=== PATIENT | female | born 1980 | race American Indian/Alaskan Native ===

== ENCOUNTER 2017-01-14 18:15 | Emergency (ER) | payer SELFPAY ==
--- NOTE | 2017-01-14 18:40 | Emergency Department Report ---
Entered by CARLY CANSECO, acting as scribe for SUJATHA PAINTING NP. Chief Complaint: Chest Pain Stated Complaint: CHEST PAIN/TIGHTNESS/RT ARM PAIN Time Seen by Provider: 01/14/17 18:34 - HPI History of Present Illness: 36 y/o female reports c/o chest pain that started 2 weeks ago and radiates to back and left arm. Pain is worsened with physical exertion. Sx include N/V, diaphoresis. no neuro or focal deficits NAD VSS Ambulatory - ROS Review of Systems: as noted in HPI - Exam Vital Signs: Vital Signs 01/14/17 18:25 Temperature 98.7 F Pulse Rate 71 Respiratory 20 Rate Blood Pressure 153/107 O2 Sat by Pulse 99 Oximetry Physical Exam: as noted in HPI MSE screening note: Focused history and physical exam performed. Due to findings the following was ordered: ED Disposition for MSE Condition: Stable This documentation as recorded by the scribe,CARLY CANSECO,accurately reflects the service I personally performed and the decisions made by ,SUJATHA PAINTING NP.
--- NOTE | 2017-01-14 18:40 | Emergency Department Report ---
Chief Complaint: Chest Pain Stated Complaint: CHEST PAIN/TIGHTNESS/RT ARM PAIN Time Seen by Provider: 01/14/17 18:30 - HPI History of Present Illness: chest tight no n/v/d denies hx but chart contrary w htn/cva allergy percocet no cig does not know fam hx no daily meds no cp at present - Exam Vital Signs: Vital Signs 01/14/17 18:25 Temperature 98.7 F Pulse Rate 71 Respiratory 20 Rate Blood Pressure 153/107 O2 Sat by Pulse 99 Oximetry MSE screening note: Focused history and physical exam performed. Due to findings the following was ordered: ED Disposition for MSE Condition: Stable
[2017-01-14 19:40] LABS: Basophils % (Auto) 0.4 % (0.0-1.8); Eosinophils % (Auto) 4.2 % (0.0-4.3); Hemoglobin 13.1 gm/dl (10.1-14.3); Mean Corpuscular HGB Conc 33 % (30-34); Mean Corpuscular Hemoglobin 27 pg (28-32); Mean Corpuscular Volume 83 fl (79-97); Platelet Count 235 K/mm3 (140-440); Red Blood Count 4.83 M/mm3 (3.65-5.03); Red Cell Distribution Width 14.1 % (13.2-15.2); White Blood Count 5.9 K/mm3 (4.5-11.0)
[2017-01-14 19:56] LABS: Anion Gap 18 mmol/L; BUN/Creatinine Ratio 17.14; Blood Urea Nitrogen 12 mg/dL (7-17); Calcium 9.2 mg/dL (8.4-10.2); Carbon Dioxide 24 mmol/L (22-30); Chloride 103.1 mmol/L (98-107); Glucose 123 mg/dL (65-100); Potassium 4.1 mmol/L (3.6-5.0); Sodium 141 mmol/L (137-145)
[2017-01-15] MEDS ORDERED: NORMODYNE IV ONE (02:24)
[2017-01-15] MEDS ORDERED: ZOFRAN IV ONE (03:10)
[2017-01-15] MEDS ORDERED: TORADOL IV ONE (03:10)
[2017-01-15] MEDS ORDERED: SUBLIMAZE IV ONE (03:21)
--- NOTE | 2017-01-15 05:50 | Emergency Department Report ---
HPI - General Chief Complaint: Chest Pain Time Seen by Provider: 01/15/17 02:25 - HPI HPI: The patient is a 36 yo female whom presents for evaluation of chest pain. The patient reports chest pain for the past 2 weeks, 6/10 in severity, dull but at times sharp in quality, radiating to the left arm and back, exacerbated with movement. She states that her symptoms began after she was exercising. She admits to a nonproductive cough for the same duration as well. The patient denies fever, neck pain, parasthesias, dyspnea, cough, hemoptysis, palpitations , dizziness, syncope, unilateral leg swelling, calf muscle pain. Patient also denies cocaine or other stimulant use, history of DVT or PE, recent immobilization, or history of cancer. ED Past Medical Hx - Past Medical History Hx Psychiatric Treatment: Yes (depression/anxiety) - Surgical History Hx Cholecystectomy: Yes Additional Surgical History: tubal ligation - Social History Smoking Status: Never Smoker Substance Use Type: None - Medications Home Medications: Home Medications Medication Instructions Recorded Confirmed Last Taken Type Azithromycin [Zithromax Z-TATIANA] 250 mg PO QDAY #6 tablet 01/15/17 Unknown Rx Benzonatate [Tessalon Perles] 100 mg PO Q8HR #14 capsule 01/15/17 Unknown Rx Cyclobenzaprine HCl [Flexeril 5 MG 5 mg PO Q8HR PRN #15 tab 01/15/17 Unknown Rx TAB] guaiFENesin [Mucinex] 600 mg PO Q6HR #20 tab.er.12h 01/15/17 Unknown Rx ED Review of Systems ROS: Stated complaint: CHEST PAIN/TIGHTNESS/RT ARM PAIN Other details as noted in HPI Constitutional: denies: fever ENT: denies: throat or neck pain Respiratory: reports cough denies: shortness of breath Cardiovascular: reports: chest pain Endocrine: denies unexplained weight loss or gain Gastrointestinal: denies: abdominal pain, nausea Genitourinary: denies: dysuria Musculoskeletal: denies: leg swelling Skin: denies: rash Neurological: denies: headache Hematological/Lymphatic: denies: easy bleeding or easy bruising Psych: denies sadness or hopelessness Physical Exam - Physical Exam Vital Signs: Vital Signs 01/14/17 01/15/17 01/15/17 18:25 00:23 02:43 Temperature 98.7 F 98.7 F Pulse Rate 71 68 69 Respiratory 20 14 Rate Blood Pressure 153/107 161/117 123/66 O2 Sat by Pulse 99 96 Oximetry 01/15/17 01/15/17 04:17 05:20 Temperature Pulse Rate Respiratory 20 20 Rate Blood Pressure O2 Sat by Pulse Oximetry Physical Exam: General: well-nourished, well-developed, no acute distress Head: Normocephalic, atraumatic Eyes: normal sclera ENT: Mucous membranes are pink and moist Neck: trachea midline, neck supple, No neck stiffness, no cervical adenopathy Respiratory: Breath sounds equal bilaterally, no wheezing, rales, or rhonchi Cardio: S1 and S2 present, no murmurs, rubs, gallops, capillary refill is brisk Abdomen: Normoactive bowel sounds, soft abdomen, no rigidity, no guarding or rebound tenderness Chest WALL/Back: No tenderness to palpation of the chest wall, chest pain elicited with internal rotation and adduction of the left arm at the shoulder joint, no CVA tenderness with percussion Musc: No pitting edema Skin: No rash Neuro: no facial drooping, normal speech Psych: Normal affect ED Course Vital Signs 01/14/17 01/15/17 01/15/17 18:25 00:23 02:43 Temperature 98.7 F 98.7 F Pulse Rate 71 68 69 Respiratory 20 14 Rate Blood Pressure 153/107 161/117 123/66 O2 Sat by Pulse 99 96 Oximetry 01/15/17 01/15/17 04:17 05:20 Temperature Pulse Rate Respiratory 20 20 Rate Blood Pressure O2 Sat by Pulse Oximetry ED Medical Decision Making - Lab Data Result diagrams: 01/14/17 19:25 01/14/17 19:25 - Medical Decision Making The patient was seen and examined by myself. The patient is placed on a measurement superintendent and continuous pulse ox. On initial evaluation, the patient was found to be in no distress. EKG was negative for findings suggestive of acute cardiac infarct. Labs and imaging are obtained. The patient is given IV Toradol and IV fentanyl for pain. Chest x-ray is negative for pneumothorax, focal consolidation, pulmonary vascular congestion, pleural effusion, or other obvious acute cardiopulmonary disease process. Lab results were non-concerning including levels of troponin, WBC, hemoglobin, hematocrit, electrolytes, renal function. The patient was reevaluated and reported that their symptoms were markedly improved. As the patient has a DICK risk score less than 2, and a well 's score less than 2, the patient is at low risk of ACS or pulmonary emboli etiology of their symptoms. The patient is given a prescription for a Z-Tatiana and Tessalon Perles for her cough. The patient is stable for discharge with outpatient follow-up. The patient is given follow-up and return instructions. The patient expressed understanding and agreed with the plan. The patient is discharged in stable condition. Critical care attestation.: If time is entered above; I have spent that time in minutes in the direct care of this critically ill patient, excluding procedure time. ED Disposition Clinical Impression: Acute chest pain Upper respiratory infection Qualifiers: URI type: unspecified viral URI Qualified Code(s): J06.9 - Acute upper respiratory infection, unspecified; B97.89 - Other viral agents as the cause of diseases classified elsewhere Disposition: DISCHARGED TO HOME OR SELFCARE Is pt being admited?: No Does the pt Need Aspirin: No Condition: Stable Instructions: Chest Pain (ED) Prescriptions: Azithromycin [Zithromax Z-TATIANA] 250 mg PO QDAY #6 tablet Benzonatate [Tessalon Perles] 100 mg PO Q8HR #14 capsule Cyclobenzaprine HCl [Flexeril 5 MG TAB] 5 mg PO Q8HR PRN #15 tab PRN Reason: Pain guaiFENesin [Mucinex] 600 mg PO Q6HR #20 tab.er.12h Referrals: PRIMARY CARE, [Primary Care Provider] - 3-5 Days Time of Disposition: 05:45
[2017-01-15 06:36] VITALS: BP 120/73
--- NOTE | 2017-01-15 08:44 | XRay Report ---
CHEST ONE VIEW INDICATION: Chest pain. COMPARISON: None similar. FINDINGS: Portable, single, frontal chest radiograph demonstrates normal cardiomediastinal silhouette. Clear lungs. Unremarkable bones. Few extrinsic artifacts. CONCLUSION: No acute disease in the chest. Thank you for the opportunity to participate in this patient's care.
== END 2017-01-15 06:43 | disposition home or self-care (01) ==
LOC: ED 18:15
DX: R07.9 Chest pain, unspecified (principal); J06.9 Acute upper respiratory infection, unspecified; F32.9 Major depressive disorder, single episode, unspecified; F41.9 Anxiety disorder, unspecified; Z88.6 Allergy status to analgesic agent; Z88.8 Allergy status to other drugs, medicaments and biological substances
CPT/HCPCS: 36415; 71010; 80048; 84484; 85025; 93005; 93010; 96374; 96375; 99285; J1885; J2405; J3010

== ENCOUNTER 2019-10-02 00:59 | Emergency (ER) | payer SELFPAY ==
[2019-10-02] MEDS ORDERED: MECLIZINE 25 MG TAB PO ONE (02:37)
[2019-10-02 03:11] LABS: Basophils # (Auto) 0.1 K/mm3 (0.0-0.1); Basophils % (Auto) 1.3 % (0.0-1.8); Eosinophils # (Auto) 0.3 K/mm3 (0.0-0.4); Hematocrit 40.4 % (30.3-42.9); Hemoglobin 13.4 gm/dl (10.1-14.3); Lymphocytes # (Auto) 1.9 K/mm3 (1.2-5.4); Lymphocytes % (Auto) 29.2 % (13.4-35.0); Mean Corpuscular HGB Conc 33 % (30-34); Mean Corpuscular Volume 83 fl (79-97); Monocytes # (Auto) 0.4 K/mm3 (0.0-0.8); Monocytes % (Auto) 5.8 % (0.0-7.3); Platelet Count 300 K/mm3 (140-440); Red Blood Count 4.85 M/mm3 (3.65-5.03); Red Cell Distribution Width 14.4 % (13.2-15.2)
[2019-10-02 03:30] LABS: BUN/Creatinine Ratio 11; Blood Urea Nitrogen 9 mg/dL (7-17); Calcium 9.3 mg/dL (8.4-10.2); Hemolysis Index 8
[2019-10-02 03:36] VITALS: BP 125/92
--- NOTE | 2019-10-02 03:52 | Emergency Department Report ---
ED Dizziness HPI - General Chief Complaint: Dizziness Stated Complaint: SEVERE DIZZINESS Time Seen by Provider: 10/02/19 02:30 Source: patient, family Mode of arrival: Ambulatory Limitations: No Limitations - History of Present Illness Initial Comments: 38-year-old female with a past medical history of obesity and chronic back pain presents to the hospital complaining of dizzy spells that started today. Patient refers felt a spinning sensation when she sat up from a lying position. She she complains of having an intermittent spinning sensations with postural changes and movement of head from side to side. She denies nausea, vomiting, diarrhea, blurred vision, focal weakness, focal numbness, chest pain, shortness of breath, or headache. Patient denies ringing in her ear or ear pain. - Related Data Previous Rx's Medication Instructions Recorded Last Taken Type Azithromycin [Zithromax Z-TATIANA] 250 mg PO QDAY #6 tablet 01/15/17 Unknown Rx Benzonatate [Tessalon Perles] 100 mg PO Q8HR #14 capsule 01/15/17 Unknown Rx Cyclobenzaprine HCl [Flexeril 5 MG 5 mg PO Q8HR PRN #15 tab 01/15/17 Unknown Rx TAB] guaiFENesin [Mucinex] 600 mg PO Q6HR #20 tab.er.12h 01/15/17 Unknown Rx Meclizine [Antivert] 25 mg PO TID PRN #30 tablet 10/02/19 Unknown Rx Allergies Allergy/AdvReac Type Severity Reaction Status Date / Time acetaminophen [From Percocet] AdvReac Itching Verified 10/22/15 07:22 oxycodone HCl [From Percocet] AdvReac Itching Verified 10/22/15 07:22 ED Review of Systems ROS: Stated complaint: SEVERE DIZZINESS Other details as noted in HPI Comment: All other systems reviewed and negative ED Past Medical Hx - Past Medical History Previous Medical History?: Yes Hx Psychiatric Treatment: Yes (depression/anxiety) Additional medical history: Chronic Back Pain - Surgical History Past Surgical History?: Yes Hx Cholecystectomy: Yes Additional Surgical History: tubal ligation - Social History Smoking Status: Never Smoker Substance Use Type: None - Medications Home Medications: Home Medications Medication Instructions Recorded Confirmed Last Taken Type Azithromycin [Zithromax Z-TATIANA] 250 mg PO QDAY #6 tablet 01/15/17 Unknown Rx Benzonatate [Tessalon Perles] 100 mg PO Q8HR #14 capsule 01/15/17 Unknown Rx Cyclobenzaprine HCl [Flexeril 5 MG 5 mg PO Q8HR PRN #15 tab 01/15/17 Unknown Rx TAB] guaiFENesin [Mucinex] 600 mg PO Q6HR #20 tab.er.12h 01/15/17 Unknown Rx Meclizine [Antivert] 25 mg PO TID PRN #30 tablet 10/02/19 Unknown Rx ED Physical Exam - General Limitations: No Limitations - Other Other exam information: General: No limitations, patient is alert in no acute distress Head exam: Atraumatic, normocephalic Eyes exam: Normal appearance, pupils equal reactive to light, extraocular movements intact ENT: Moist mucous membrane, normal oropharynx, bilateral TM normal Neck exam: Normal inspection, full range of motion, no meningismus nontender Respiratory exam: Clear to auscultation bilateral, no wheezes, rales, crackles Cardiovascular: Normal rate and rhythm, normal heart sounds Abdomen: Soft, nondistended, and nontender, with normal bowel sounds, no rebound, or guarding Extremity: Full range of motion normal inspection no deformity Back: Normal Inspection, full range of motion, lower midline back tenderness chronic Neurologic: Alert, oriented x3, cranial nerves intact, no motor or sensory deficit, zhaojf-[id number] function intact Psychiatric: normal affect, normal mood Skin: Warm, dry, intact ED Course Vital Signs 10/02/19 10/02/19 10/02/19 01:04 02:30 02:32 Temperature 98.3 F 98.3 F Pulse Rate 107 H 93 H 90 Respiratory 18 19 15 Rate Blood Pressure 177/104 135/93 Blood Pressure 130/84 [Left] O2 Sat by Pulse 94 96 97 Oximetry 10/02/19 10/02/19 03:00 03:30 Temperature Pulse Rate 88 84 Respiratory 12 16 Rate Blood Pressure 140/98 125/92 Blood Pressure [Left] O2 Sat by Pulse 98 98 Oximetry - Reevaluation(s) Reevaluation #1: 10/02/19 04:02 pt reports feeling better 10/02/19 04:05 mild residual dizziness reported but much improved pt ambulating without difficulty ED Medical Decision Making - Lab Data Result diagrams: 10/02/19 02:52 10/02/19 02:52 Lab Results 10/02/19 10/02/19 10/02/19 Range/Units 02:52 02:52 02:52 WBC 6.6 (4.5-11.0) K/mm3 RBC 4.85 (3.65-5.03) M/mm3 Hgb 13.4 (10.1-14.3) gm/dl Hct 40.4 (30.3-42.9) % MCV 83 (79-97) fl MCH 28 (28-32) pg MCHC 33 (30-34) % RDW 14.4 (13.2-15.2) % Plt Count 300 (140-440) K/mm3 Lymph % (Auto) 29.2 (13.4-35.0) % [place] % (Auto) 5.8 (0.0-7.3) % Eos % (Auto) 4.0 (0.0-4.3) % Baso % (Auto) 1.3 (0.0-1.8) % Lymph # 1.9 (1.2-5.4) K/mm3 [place] # 0.4 (0.0-0.8) K/mm3 Eos # 0.3 (0.0-0.4) K/mm3 Baso # 0.1 (0.0-0.1) K/mm3 Seg Neutrophils % 59.7 (40.0-70.0) % Seg Neutrophils # 4.0 (1.8-7.7) K/mm3 Sodium 138 (137-145) mmol/L Potassium 3.8 (3.6-5.0) mmol/L Chloride 103.7 (98-107) mmol/L Carbon Dioxide 20 L (22-30) mmol/L Anion Gap 18 mmol/L BUN 9 (7-17) mg/dL Creatinine 0.8 (0.7-1.2) mg/dL Estimated GFR > 60 ml/min BUN/Creatinine Ratio 11 % Glucose 114 H (65-100) mg/dL Calcium 9.3 (8.4-10.2) mg/dL Magnesium 1.90 (1.7-2.3) mg/dL HCG, Qual Negative (Negative) - Medical Decision Making Labs unremarkable. Initial blood pressure improved spontaneously. Patient received meclizine with improvement in symptoms. Patient will be treated for vertigo of follow-up with PMD and ENT will be encouraged. - Differential Diagnosis vertigo central versus peripheral, electro abnormality, anemia, dehydration Critical Care Time: No Critical care attestation.: If time is entered above; I have spent that time in minutes in the direct care of this critically ill patient, excluding procedure time. ED Disposition Clinical Impression: Vertigo Disposition: DC-01 TO HOME OR SELFCARE Is pt being admited?: No Does the pt Need Aspirin: No Condition: Stable Instructions: Vertigo (ED) Additional Instructions: Take the medication as prescribed. Follow-up with your doctor or with the doctor provided. Return is symptoms worsen as indicated by your discharge instructions. Prescriptions: Meclizine [Antivert] 25 mg PO TID PRN #30 tablet PRN Reason: Vertigo Referrals: PRIMARY CAREMD [Primary Care Provider] - 3-5 Days SATURNINO SALOMON MD [Staff Physician] - 3-5 Days (primary care doctor ) ANN ALFORD MD [Staff Physician] - 3-5 Days (ENT doctor ) Time of Disposition: 04:08
== END 2019-10-02 04:24 | disposition home or self-care (01) ==
LOC: ED 00:59
DX: R42 Dizziness and giddiness (principal); F32.9 Major depressive disorder, single episode, unspecified; F41.9 Anxiety disorder, unspecified; Z90.49 Acquired absence of other specified parts of digestive tract; Z98.51 Tubal ligation status; Z79.899 Other long term (current) drug therapy; Z88.6 Allergy status to analgesic agent; Z88.5 Allergy status to narcotic agent
CPT/HCPCS: 36415; 80048; 83735; 84703; 85025

== ENCOUNTER 2021-07-20 12:21 | Outpatient (CLI) | payer MEDICAID ==
--- NOTE | 2021-07-20 14:50 | XRay Report ---
LEFT ANKLE 3 VIEWS INDICATION / CLINICAL INFORMATION: LEFT ANKLE PAIN. COMPARISON: None available. FINDINGS: BONES / JOINT(S): There is an acute, mildly displaced oblique fracture of the distal fibular metadiap hysis. There is a probable acute transverse fracture of the distal tip of the medial malleolus on the oblique view. No dislocation. There is a tiny plantar calcaneal spur. SOFT TISSUES: There is mild to moderate soft tissue swelling, predominantly overlying the lateral mal leolus. ADDITIONAL FINDINGS: None. Signer Name: Alvaro Eugene MD Signed: 07/20/2021 2:46 PM Workstation Name: [id number]
== END 2021-07-20 12:22 | disposition home or self-care (01) ==
LOC: XRAY 12:21
PROVIDERS: ATTEND Orthopaedic Surgery
DX: S89.392A Other physeal fracture of lower end of left fibula, initial encounter for closed fracture (principal); S82.90XA Unspecified fracture of unspecified lower leg, initial encounter for closed fracture; M77.32 Calcaneal spur, left foot; M79.89 Other specified soft tissue disorders; X58.XXXA Exposure to other specified factors, initial encounter; Y93.89 Activity, other specified; Y92.89 Other specified places as the place of occurrence of the external cause; Y99.8 Other external cause status

== ENCOUNTER 2021-07-27 11:45 | Outpatient (CLI) | payer MEDICAID ==
--- NOTE | 2021-07-27 14:11 | XRay Report ---
Left ankle-3 views INDICATION: UNSPECIFIED FRACTURE LOWER LEFT LEG. COMPARISON: None. IMPRESSION: Obliquely oriented fracture of the lateral malleolus at the level of the tibiotalar join t space (Lopez type B) with overlying soft tissue swelling. Corticated ossific density at the tip of the medial malleolus may reflect a more chronic injury but correlate with point tenderness in this r egion since an avulsion fracture could have this appearance. Normal alignment. No significant DJD. Signer Name: Johny Kang MD Signed: 07/27/2021 2:06 PM Workstation Name: [id number]
== END 2021-07-27 11:46 | disposition home or self-care (01) ==
LOC: XRAY 11:45
PROVIDERS: ATTEND Orthopaedic Surgery
DX: S82.62XA Displaced fracture of lateral malleolus of left fibula, initial encounter for closed fracture (principal); S82.90XA Unspecified fracture of unspecified lower leg, initial encounter for closed fracture; M79.89 Other specified soft tissue disorders; X58.XXXA Exposure to other specified factors, initial encounter; Y93.89 Activity, other specified; Y92.89 Other specified places as the place of occurrence of the external cause; Y99.8 Other external cause status

== ENCOUNTER 2021-08-14 10:35 | Outpatient (CLI) | payer MEDICAID ==
--- NOTE | 2021-08-14 11:12 | XRay Report ---
XR ankle 3+V LT INDICATION: LEFT ANKLE PAIN. COMPARISON: 07/27/2021 FINDINGS: There is unchanged alignment of the lateral malleolus fracture. There are some early bone remodeling suggesting healing. 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 Signer Name: Delvin Ochoa MD Signed: 08/14/2021 11:08 AM Workstation Name: [id number]
== END 2021-08-14 10:36 | disposition home or self-care (01) ==
LOC: XRAY 10:35
PROVIDERS: ATTEND Orthopaedic Surgery
DX: S82.62XA Displaced fracture of lateral malleolus of left fibula, initial encounter for closed fracture (principal); S82.90XA Unspecified fracture of unspecified lower leg, initial encounter for closed fracture; X58.XXXA Exposure to other specified factors, initial encounter; Y93.89 Activity, other specified; Y92.89 Other specified places as the place of occurrence of the external cause; Y99.8 Other external cause status

== ENCOUNTER 2021-08-25 19:05 | Emergency (ER) | payer MEDICAID ==
[2021-08-25] MEDS ORDERED: traMADol 50 MG TAB PO ONE (19:25)
--- NOTE | 2021-08-25 20:14 | Emergency Department Report ---
ED Lower Extremity HPI - General Chief Complaint: Extremity Injury, Lower Stated Complaint: Injury Time Seen by Provider: 08/25/21 19:20 Source: patient Mode of arrival: Wheelchair Limitations: No Limitations - History of Present Illness Initial Comments: Patient is a 40-year-old female presents emergency room complaints of an exacerbation of her left ankle pain that occurred this morning. Patient states that she was diagnosed with a left ankle fracture of her fibula approximately 6 weeks ago. Patient states that she has been in a walking boot and has been seeing Dr. Acharya, orthopedic. Patient states she believes this morning she hit her ankle against the bedpost which caused her to have pain. She states that she has not been ambulating secondary to pain. She denies any numbness or weakness allergy to Percocet. - Related Data Previous Rx's Medication Instructions Recorded Last Taken Type Azithromycin [Zithromax Z-TATIANA] 250 mg PO QDAY #6 tablet 01/15/17 Unknown Rx Benzonatate [Tessalon Perles] 100 mg PO Q8HR #14 capsule 01/15/17 Unknown Rx Cyclobenzaprine HCl [Flexeril 5 MG 5 mg PO Q8HR PRN #15 tab 01/15/17 Unknown Rx TAB] guaiFENesin [Mucinex] 600 mg PO Q6HR #20 tab.er.12h 01/15/17 Unknown Rx Ibuprofen [Motrin 800 MG tab] 800 mg PO Q8HR PRN #30 tablet 12/26/17 Unknown Rx methOCARBAMOL [Robaxin TAB] 500 mg PO BID #15 tab 12/26/17 Unknown Rx Amoxicillin/Potassium Clav 1 each PO BID 10 Days #20 tablet 09/19/18 Unknown Rx [Augmentin 875-125 Tablet] Cetirizine HCl [ZyrTEC] 10 mg PO DAILY #30 tab.rapdis 09/19/18 Unknown Rx Fluticasone [Flonase] 1 spray NS QDAY #1 bottle 09/19/18 Unknown Rx Ibuprofen [Ibuprofen 800] 800 mg PO TID PRN #30 tablet 09/19/18 Unknown Rx Polymyxin B Sulf/Trimethoprim 2 drops OP Q4H 10 Days #10 ml 09/19/18 Unknown Rx [Polytrim Eye Drops] dexAMETHasone [Decadron] 4 mg PO BID 2 Days #4 tablet 09/19/18 Unknown Rx Meclizine [Antivert] 25 mg PO TID PRN #30 tablet 10/02/19 Unknown Rx Naproxen 375 mg PO BID PRN #20 tablet 08/25/21 Unknown Rx Allergies Allergy/AdvReac Type Severity Reaction Status Date / Time acetaminophen [From Percocet] AdvReac Itching Verified 07/04/20 15:42 oxycodone HCl [From Percocet] AdvReac Itching Verified 07/04/20 15:42 ED Review of Systems ROS: Stated complaint: Injury Other details as noted in HPI Comment: All other systems reviewed and negative ED Past Medical Hx - Past Medical History Previous Medical History?: Yes Hx Psychiatric Treatment: Yes (depression/anxiety) Additional medical history: Chronic Back Pain - Surgical History Past Surgical History?: Yes Hx Cholecystectomy: Yes Additional Surgical History: tubal ligation - Social History Smoking Status: Never Smoker Substance Use Type: None - Medications Home Medications: Home Medications Medication Instructions Recorded Confirmed Last Taken Type Azithromycin [Zithromax Z-TATIANA] 250 mg PO QDAY #6 tablet 01/15/17 Unknown Rx Benzonatate [Tessalon Perles] 100 mg PO Q8HR #14 capsule 01/15/17 Unknown Rx Cyclobenzaprine HCl [Flexeril 5 MG 5 mg PO Q8HR PRN #15 tab 01/15/17 Unknown Rx TAB] guaiFENesin [Mucinex] 600 mg PO Q6HR #20 tab.er.12h 01/15/17 Unknown Rx Ibuprofen [Motrin 800 MG tab] 800 mg PO Q8HR PRN #30 tablet 12/26/17 Unknown Rx methOCARBAMOL [Robaxin TAB] 500 mg PO BID #15 tab 12/26/17 Unknown Rx Amoxicillin/Potassium Clav 1 each PO BID 10 Days #20 tablet 09/19/18 Unknown Rx [Augmentin 875-125 Tablet] Cetirizine HCl [ZyrTEC] 10 mg PO DAILY #30 tab.rapdis 09/19/18 Unknown Rx Fluticasone [Flonase] 1 spray NS QDAY #1 bottle 09/19/18 Unknown Rx Ibuprofen [Ibuprofen 800] 800 mg PO TID PRN #30 tablet 09/19/18 Unknown Rx Polymyxin B Sulf/Trimethoprim 2 drops OP Q4H 10 Days #10 ml 09/19/18 Unknown Rx [Polytrim Eye Drops] dexAMETHasone [Decadron] 4 mg PO BID 2 Days #4 tablet 09/19/18 Unknown Rx Meclizine [Antivert] 25 mg PO TID PRN #30 tablet 10/02/19 Unknown Rx Naproxen 375 mg PO BID PRN #20 tablet 08/25/21 Unknown Rx ED Physical Exam - General Limitations: No Limitations General appearance: alert, in no apparent distress - Head Head exam: Present: atraumatic, normocephalic - Eye Eye exam: Present: normal appearance - ENT ENT exam: Present: mucous membranes moist - Extremities Exam Extremities exam: Present: other (ttp to the left lateral ankle, mild edema, pain with ROM, no deformity, no skin changes, neurovascularly intact) - Neurological Exam Neurological exam: Present: alert, oriented X3 - Psychiatric Psychiatric exam: Present: normal affect, normal mood - Skin Skin exam: Present: warm, dry, intact ED Course Vital Signs 08/25/21 19:13 Temperature 98.3 F Pulse Rate 89 Respiratory 18 Rate Blood Pressure 129/83 O2 Sat by Pulse 99 Oximetry ED Lower Extremity MDM - Radiology Data Radiology results: report reviewed LEFT FOOT 3 VIEW(S) INDICATION / CLINICAL INFORMATION: left ankle pain, hx of recent fx 6 weeks ago COMPARISON: None available. FINDINGS: BONES / JOINT(S): No acute fracture or dislocation in the foot. Please see separately dictated ankle radiographs regarding distal fibula fracture. SOFT TISSUES: No significant abnormality. ADDITIONAL FINDINGS: None. Signer Name: Aj Jordan MD Signed: 08/25/2021 7:15 PM Workstation Name: [id number] LEFT ANKLE 3 VIEW(S) INDICATION / CLINICAL INFORMATION: left ankle pain, hx of recent fx 6 weeks ago COMPARISON: Radiographs dated 08/14/2021 FINDINGS: BONES / JOINT(S): Stable alignment of oblique fracture through the distal fibula. There is mild callus formation indicating healing. Additional ossific body at the medial malleolus likely represent sequela of prior trauma. SOFT TISSUES: Circumferential soft tissue swelling about the ankle. ADDITIONAL FINDINGS: None. Signer Name: Aj Jordan MD Signed: 08/25/2021 7:14 PM Workstation Name: [id number] - Medical Decision Making Patient is a 40-year-old female presents emergency room complaints of an exacerbation of her left ankle pain that occurred this morning. Patient states that she was diagnosed with a left ankle fracture of her fibula approximately 6 weeks ago. Patient states that she has been in a walking boot and has been seeing Dr. Acharya, orthopedic. Patient states she believes this morning she hit her ankle against the bedpost which caused her to have pain. She states that she has not been ambulating secondary to pain. She denies any numbness or weakness allergy to Percocet. Vitals are stable. X-ray left foot BONES / JOINT(S): No acute fracture or dislocation in the foot. Please see separately dictated ankle radiographs regarding distalfibula fracture.SOFT TISSUES: No significant abnormality.ADDITIONAL FINDINGS: None. X-ray left ankle BONES / JOINT(S): Stable alignment of oblique fracture through the distal fibula. There is mild callus formation indicating healing.Additional ossific body at the medial malleolus likely represent sequela of prior trauma.SOFT TISSUES: Circumferential soft tissue swelling about the ankle. Patient given pain medication on the emergency department with improvement of her symptoms. Patient already has an orthopedic walking boot. discussed the importance of outpatient orthopedic follow-up. Discussed all results with patient. Advised patient Please take medication as prescribed. May use ice 15 minutes at a time, rest, elevation of the leg. Follow-up with your orthopedic doctor. Return to emergency room for any new or worsening symptoms. Critical care attestation.: If time is entered above; I have spent that time in minutes in the direct care of this critically ill patient, excluding procedure time. ED Disposition Clinical Impression: Left ankle pain Qualifiers: Chronicity: acute Qualified Code(s): M25.572 - Pain in left ankle and joints of left foot Disposition: 01 HOME / SELF CARE / HOMELESS Is pt being admited?: No Does the pt Need Aspirin: No Condition: Stable Additional Instructions: Please take medication as prescribed. May use ice 15 minutes at a time, rest, elevation of the leg. Follow-up with your orthopedic doctor. Return to emergency room for any new or worsening symptoms. Prescriptions: Naproxen 375 mg PO BID PRN #20 tablet PRN Reason: pain Referrals: PRIMARY CARE, [Primary Care Provider] - 3-5 Days REENA ACHARYA MD [Staff Physician] - 3-5 Days Time of Disposition: 20:28 Print Language: DANISH
--- NOTE | 2021-08-25 20:18 | XRay Report ---
LEFT ANKLE 3 VIEW(S) INDICATION / CLINICAL INFORMATION: left ankle pain, hx of recent fx 6 weeks ago COMPARISON: Radiographs dated 08/14/2021 FINDINGS: BONES / JOINT(S): Stable alignment of oblique fracture through the distal fibula. There is mild callu s formation indicating healing. Additional ossific body at the medial malleolus likely represent sequ sammy of prior trauma. SOFT TISSUES: Circumferential soft tissue swelling about the ankle. ADDITIONAL FINDINGS: None. Signer Name: Aj Jordan MD Signed: 08/25/2021 8:14 PM Workstation Name: [id number]
--- NOTE | 2021-08-25 20:19 | XRay Report ---
LEFT FOOT 3 VIEW(S) INDICATION / CLINICAL INFORMATION: left ankle pain, hx of recent fx 6 weeks ago COMPARISON: None available. FINDINGS: BONES / JOINT(S): No acute fracture or dislocation in the foot. Please see separately dictated ankle radiographs regarding distal fibula fracture. SOFT TISSUES: No significant abnormality. ADDITIONAL FINDINGS: None. Signer Name: Aj Jordan MD Signed: 08/25/2021 8:15 PM Workstation Name: [id number]
[2021-08-25 21:33] VITALS: BP 167/99
== END 2021-08-25 21:31 | disposition home or self-care (01) ==
LOC: ED 19:05
DX: M25.572 Pain in left ankle and joints of left foot (principal); M54.9 Dorsalgia, unspecified; Z90.49 Acquired absence of other specified parts of digestive tract; Z98.51 Tubal ligation status; Z88.5 Allergy status to narcotic agent; Z88.6 Allergy status to analgesic agent
CPT/HCPCS: 99283

== ENCOUNTER 2021-09-04 11:07 | Outpatient (CLI) | payer MEDICAID ==
--- NOTE | 2021-09-04 13:02 | XRay Report ---
LEFT ANKLE HISTORY: Left ankle pain. COMPARISON: 08/25/2021, 08/14/2021. TECHNIQUE: 4 views of the right ankle obtained. FINDINGS: Bones: Stable alignment of known oblique fracture through the distal fibula with slight interval call us formation consistent with healing. A small corticated fragment distal to the medial malleolus is a lso stable. No new acute fracture or dislocation. Joint spaces: Maintained. Soft tissues: No significant abnormality. Additional findings: None. IMPRESSION: Stable alignment of known oblique fracture through the distal left fibula with slight interval callus formation consistent with healing. Signer Name: Del Mcnulty MD Signed: 09/04/2021 12:57 PM Workstation Name: [id number]
== END 2021-09-04 11:08 | disposition home or self-care (01) ==
LOC: XRAY 11:07
PROVIDERS: ATTEND Orthopaedic Surgery
DX: S82.432A Displaced oblique fracture of shaft of left fibula, initial encounter for closed fracture (principal); X58.XXXA Exposure to other specified factors, initial encounter; Y93.89 Activity, other specified; Y92.89 Other specified places as the place of occurrence of the external cause; Y99.8 Other external cause status

== ENCOUNTER 2022-01-31 14:00 | Emergency (ER) | payer MEDICAID ==
[2022-01-31 16:11] VITALS: BP 146/96
== END 2022-01-31 19:46 | disposition left against medical advice (07) ==
LOC: ED 14:00
DX: Z04.1 Encounter for examination and observation following transport accident (principal); Z53.21 Procedure and treatment not carried out due to patient leaving prior to being seen by health care provider; V89.2XXA Person injured in unspecified motor-vehicle accident, traffic, initial encounter; Y93.89 Activity, other specified; Y92.89 Other specified places as the place of occurrence of the external cause; Y99.8 Other external cause status

== ENCOUNTER 2022-03-24 21:26 | Emergency (ER) | payer MEDICAID | END 2022-03-24 22:00 | disposition left against medical advice (07) | LOC: ED 21:26 | DX: R51.9 Headache, unspecified (principal); Z53.21 Procedure and treatment not carried out due to patient leaving prior to being seen by health care provider ==

== ENCOUNTER 2022-05-26 15:39 | Inpatient (IN) | payer MEDICAID ==
[2022-05-26] MEDS ORDERED: METOCLOPRAMIDE 10 MG/2 ML INJ IV ONE (21:55)
[2022-05-26] MEDS ORDERED: diphenhydrAMINE 50 MG/ML VIAL IV ONE (21:55)
--- NOTE | 2022-05-26 21:55 | Event Note ---
Date: 05/26/22 Medical screening examination note: Patient currently awake, alert, protecting airway, moving 4 extremities, in no acute distress, and hemodynamically stable. does not appear to be emergently ill at this time. 41-year-old female with a body mass index of 45.2, history of idiopathic intracranial hypertension, denies history of abdominal surgeries with the exception of tubal ligation, states that she is not , presenting with multiple complaints. Complaint #1, right flank/right lower quadrant pain for 2 weeks. Denies urinary symptoms. Complaint #2, generalized headache for a few days. Headache frontal and bitemporal. Denies loss of vision. Headache not described as sudden or thunderclap, not described as the worst headache of life. Clinically sober, GCS of 15, moving 4 extremities, without meningeal signs. On review of systems, patient does endorse poor sleep hygiene, sleeping perhaps 6 hours per night, and reports that sleep is not very restful for her. /bed partner does endorse that the patient snores quite a bit. Patient does occasionally feel sleepy when she watches TV and/or movie. Does not have a formal diagnosis of obstructive sleep apnea. Patient has a body mass index of 45, suspect undiagnosed obstructive sleep apnea. Complaints #3, breast discomfort. Obtain appropriate laboratory studies, EKG, administer Reglan and Benadryl for headache, detailed history and physical to be performed by oncoming provider. Vital Signs 05/26/22 05/26/22 05/26/22 16:20 21:00 21:15 Temperature 99 F Pulse Rate 95 H Respiratory 20 13 16 Rate Blood Pressure 158/103 [Left] O2 Sat by Pulse 100 99 Oximetry 05/26/22 05/26/22 21:31 21:42 Temperature Pulse Rate Respiratory 22 Rate Blood Pressure [Left] O2 Sat by Pulse 97 98 Oximetry
[2022-05-26] MEDS ORDERED: diazePAM 10 MG/2 ML SYRINGE IV ONE (22:25)
[2022-05-26] MEDS ORDERED: SODIUM CHLORIDE 0.9% 1000 ML 1,000 ML IV ONE (22:25)
[2022-05-26 22:54] LABS: Hematocrit 39.2 % (30.3-42.9); Mean Corpuscular HGB Conc 33 % (30-34); Mean Corpuscular Volume 85 fl (79-97); Platelet Count 282 K/mm3 (140-440); Red Blood Count 4.62 M/mm3 (3.65-5.03)
[2022-05-26 23:06] LABS: INR 0.94 (0.87-1.13)
[2022-05-26 23:09] LABS: Alanine Aminotransferase 58 units/L (7-56); Albumin 4.3 g/dL (3.9-5); Blood Urea Nitrogen 6 mg/dL (7-17); Hemolysis Index 8
[2022-05-26 23:10] LABS: BUN/Creatinine Ratio 9
--- NOTE | 2022-05-26 23:52 | Emergency Department Report ---
ED Headache HPI - General Chief Complaint: Headache Stated Complaint: CANT BREATH, DIZZY, CANT STAND Time Seen by Provider: 05/26/22 22:14 Source: patient, old records Exam Limitations: no limitations - History of Present Illness Initial Comments: 41-year-old female with a past medical history of obesity, idiopathic intracranial hypertension, anxiety, tubal ligation, chronic back pain presents to the hospital with complaints of headache and right inguinal pain. Patient states she has had a right inguinal pain and right lower abdomen pain for the past 2 weeks. She complains of urinary frequency without dysuria. Pain is moderate in intensity and is worse when lying supine, with palpation, and with ambulation. Patient also states she is has a headache described as a pressure behind her eyes. She does feel as though this is similar to her idiopathic intracranial hypertension headaches. She had nausea today without vomiting, focal weakness, or focal numbness, or neck pain. She denies that this is the worst headache of her life. Allergies/Adverse Reactions: Allergies acetaminophen [From Percocet] Adverse Reaction (Verified 05/26/22 16:20) Itching oxycodone HCl [From Percocet] Adverse Reaction (Verified 05/26/22 16:20) Itching Home Medications: Ambulatory Orders Azithromycin [Zithromax Z-TATIANA] 250 mg PO QDAY #6 tablet 01/15/17 Benzonatate [Tessalon Perles] 100 mg PO Q8HR #14 capsule 01/15/17 Cyclobenzaprine HCl [Flexeril 5 MG TAB] 5 mg PO Q8HR PRN #15 tab 01/15/17 guaiFENesin [Mucinex] 600 mg PO Q6HR #20 tab.er.12h 01/15/17 Ibuprofen [Motrin 800 MG tab] 800 mg PO Q8HR PRN #30 tablet 12/26/17 methOCARBAMOL [Robaxin TAB] 500 mg PO BID #15 tab 12/26/17 Amoxicillin/Potassium Clav [Augmentin 875-125 Tablet] 1 each PO BID 10 Days #20 tablet 09/19/18 Cetirizine HCl [ZyrTEC] 10 mg PO DAILY #30 tab.rapdis 09/19/18 Fluticasone [Flonase] 1 spray NS QDAY #1 bottle 09/19/18 Ibuprofen [Ibuprofen 800] 800 mg PO TID PRN #30 tablet 09/19/18 Polymyxin B Sulf/Trimethoprim [Polytrim Eye Drops] 2 drops OP Q4H 10 Days #10 ml 09/19/18 dexAMETHasone [Decadron] 4 mg PO BID 2 Days #4 tablet 09/19/18 Meclizine [Antivert] 25 mg PO TID PRN #30 tablet 10/02/19 Naproxen 375 mg PO BID PRN #20 tablet 08/25/21 ED Review of Systems ROS: Stated complaint: CANT BREATH, DIZZY, CANT STAND Other details as noted in HPI Comment: All other systems reviewed and negative ED Past Medical Hx - Past Medical History Hx Hypertension: Yes Hx Psychiatric Treatment: Yes (depression/anxiety) Additional medical history: Chronic Back Pain/ IIH - Surgical History Hx Cholecystectomy: Yes Additional Surgical History: tubal ligation - Social History Smoking Status: Never Smoker Substance Use Type: None - Medications Home Medications: Home Medications Medication Instructions Recorded Confirmed Last Taken Type Azithromycin [Zithromax Z-TATIANA] 250 mg PO QDAY #6 tablet 01/15/17 Unknown Rx Benzonatate [Tessalon Perles] 100 mg PO Q8HR #14 capsule 01/15/17 Unknown Rx Cyclobenzaprine HCl [Flexeril 5 MG 5 mg PO Q8HR PRN #15 tab 01/15/17 Unknown Rx TAB] guaiFENesin [Mucinex] 600 mg PO Q6HR #20 tab.er.12h 01/15/17 Unknown Rx Ibuprofen [Motrin 800 MG tab] 800 mg PO Q8HR PRN #30 tablet 12/26/17 Unknown Rx methOCARBAMOL [Robaxin TAB] 500 mg PO BID #15 tab 12/26/17 Unknown Rx Amoxicillin/Potassium Clav 1 each PO BID 10 Days #20 tablet 09/19/18 Unknown Rx [Augmentin 875-125 Tablet] Cetirizine HCl [ZyrTEC] 10 mg PO DAILY #30 tab.rapdis 09/19/18 Unknown Rx Fluticasone [Flonase] 1 spray NS QDAY #1 bottle 09/19/18 Unknown Rx Ibuprofen [Ibuprofen 800] 800 mg PO TID PRN #30 tablet 09/19/18 Unknown Rx Polymyxin B Sulf/Trimethoprim 2 drops OP Q4H 10 Days #10 ml 09/19/18 Unknown Rx [Polytrim Eye Drops] dexAMETHasone [Decadron] 4 mg PO BID 2 Days #4 tablet 09/19/18 Unknown Rx Meclizine [Antivert] 25 mg PO TID PRN #30 tablet 10/02/19 Unknown Rx Naproxen 375 mg PO BID PRN #20 tablet 08/25/21 Unknown Rx ED Physical Exam - General Limitations: No Limitations - Other Other exam information: General: No acute distress Head: Atraumatic Eyes: normal appearance ENT: Moist mucous membranes Neck: Normal appearance, no midline tenderness, no nuchal rigidity Chest: Clear to auscultation bilaterally CV: Regular rate and rhythm Abdomen: Soft, normal bowel sounds, right suprapubic and right inguinal tenderness without swelling or redness. No rebound or guarding Back: Normal inspection Extremity: Normal inspection, full range of motion Neuro: Alert O x 3, no facial asymmetry, speech clear, no gross motor sensory deficit Psych: Appropriate behavior Skin: No rash ED Course Vital Signs 05/26/22 05/26/22 05/26/22 16:20 21:00 21:15 Temperature 99 F Pulse Rate 95 H Respiratory 20 13 16 Rate Blood Pressure Blood Pressure 158/103 [Left] O2 Sat by Pulse 100 99 Oximetry 05/26/22 05/26/22 05/26/22 21:31 21:42 21:45 Temperature Pulse Rate 94 H Respiratory 22 24 Rate Blood Pressure 138/93 Blood Pressure [Left] O2 Sat by Pulse 97 98 98 Oximetry 05/26/22 05/26/22 05/26/22 22:01 22:15 22:31 Temperature Pulse Rate 110 H 84 121 H Respiratory 21 13 21 Rate Blood Pressure 138/93 156/102 181/117 Blood Pressure [Left] O2 Sat by Pulse 98 97 Oximetry 05/26/22 05/26/22 05/26/22 22:45 23:00 23:01 Temperature Pulse Rate 146 H 104 H 97 H Respiratory 28 H 23 21 Rate Blood Pressure 181/117 181/117 157/96 Blood Pressure [Left] O2 Sat by Pulse 97 94 93 Oximetry 05/26/22 05/26/22 05/26/22 23:16 23:30 23:45 Temperature Pulse Rate 98 H 103 H 93 H Respiratory 21 23 23 Rate Blood Pressure 157/96 157/96 145/78 Blood Pressure [Left] O2 Sat by Pulse 94 92 95 Oximetry 05/27/22 05/27/22 05/27/22 00:01 00:16 00:31 Temperature Pulse Rate 92 H 96 H 94 H Respiratory 18 23 24 Rate Blood Pressure 145/78 145/78 109/51 Blood Pressure [Left] O2 Sat by Pulse 99 99 98 Oximetry 05/27/22 05/27/22 05/27/22 00:45 01:01 01:15 Temperature Pulse Rate 93 H 91 H 89 Respiratory 17 26 H 18 Rate Blood Pressure 146/102 146/102 133/73 Blood Pressure [Left] O2 Sat by Pulse 99 99 97 Oximetry 05/27/22 05/27/22 05/27/22 01:31 01:45 02:01 Temperature Pulse Rate 92 H 92 H 96 H Respiratory 25 H 16 15 Rate Blood Pressure 133/73 153/91 153/91 Blood Pressure [Left] O2 Sat by Pulse 98 98 98 Oximetry 05/27/22 05/27/22 05/27/22 02:15 02:31 02:45 Temperature Pulse Rate 96 H 92 H 98 H Respiratory 18 26 H 12 Rate Blood Pressure 158/93 158/93 153/91 Blood Pressure [Left] O2 Sat by Pulse 99 98 100 Oximetry - Reevaluation(s) Reevaluation #1: 05/26/22 During my initial evaluation patient had just received Benadryl and Ativan and reports that her headache symptoms were improving. She then began feeling lightheaded and states she did not feel right. Patient's heart rate jumped up to the 140s. EKG performed emergently and reveals sinus tachycardia rate 142. IV Valium and normal saline ordered 05/26/22 23:52 Patient currently resting. She is reporting feeling "much better". Heart rate is less than 100. - Consultations Consultation #1: 05/27/[address] findings and patient presentation discussed with Dr. Lopez. He advises admission for surgical evaluation. Recommend NPO. Antibiotics not recommended this time ED Medical Decision Making - Lab Data Result diagrams: 05/26/22 22:31 05/26/22 22:31 Lab Results 05/26/22 05/26/22 05/26/22 Range/Units 22:31 22:31 22:31 WBC 8.6 (4.5-11.0) K/mm3 RBC 4.62 (3.65-5.03) M/mm3 Hgb 13.0 (10.1-14.3) gm/dl Hct 39.2 (30.3-42.9) % MCV 85 (79-97) fl MCH 28 (28-32) pg MCHC 33 (30-34) % RDW 15.0 (13.2-15.2) % Plt Count 282 (140-440) K/mm3 PT 13.6 (12.2-14.9) Sec. INR 0.94 (0.87-1.13) Sodium 136 L (137-145) mmol/L Potassium 3.5 L (3.6-5.0) mmol/L Chloride 101.4 (98-107) mmol/L Carbon Dioxide 20 L (22-30) mmol/L Anion Gap 18 mmol/L BUN 6 L (7-17) mg/dL Creatinine 0.7 (0.6-1.2) mg/dL Estimated GFR > 60 ml/min BUN/Creatinine Ratio 9 % Glucose 144 H (65-100) mg/dL Calcium 9.0 (8.4-10.2) mg/dL Magnesium 2.00 (1.7-2.3) mg/dL Total Bilirubin 0.50 (0.1-1.2) mg/dL AST 41 H (5-40) units/L ALT 58 H (7-56) units/L Alkaline Phosphatase 71 (35-129) units/L Total Creatine Kinase 160 H (30-135) units/L Total Protein 7.7 (6.3-8.2) g/dL Albumin 4.3 (3.9-5) g/dL Albumin/Globulin Ratio 1.3 % TSH (0.270-4.200) mlU/mL Free T4 (0.76-1.46) ng/dL HCG, Quant (0-4) mIU/mL Urine Color (Yellow) Urine Turbidity (Clear) Specific Sparks (Man) (1.003-1.030) Ur Protein (Man) (Negative) mg/dL Ur Ketones (Man) (Negative) Ur Nitrite (Man) (Negative) Ur Reducing Substances Urine Bilirubin (Man) (Negative) Urine Ictotest Leukocyte Esterase (Man) (Negative) Urine WBC (Auto) (0.0-6.0) /HPF Urine RBC (Auto) (0.0-6.0) /HPF U Epithel Cells (Auto) (0-13.0) /HPF Urine Bacteria (Auto) (Negative) /HPF Urine RBC (Manual) (Negative) Urine Mucus /HPF 05/26/22 05/26/22 05/26/22 Range/Units 22:31 22:31 22:31 WBC (4.5-11.0) K/mm3 RBC (3.65-5.03) M/mm3 Hgb (10.1-14.3) gm/dl Hct (30.3-42.9) % MCV (79-97) fl MCH (28-32) pg MCHC (30-34) % RDW (13.2-15.2) % Plt Count (140-440) K/mm3 PT (12.2-14.9) Sec. INR (0.87-1.13) Sodium (137-145) mmol/L Potassium (3.6-5.0) mmol/L Chloride (98-107) mmol/L Carbon Dioxide (22-30) mmol/L Anion Gap mmol/L BUN (7-17) mg/dL Creatinine (0.6-1.2) mg/dL Estimated GFR ml/min BUN/Creatinine Ratio % Glucose (65-100) mg/dL Calcium (8.4-10.2) mg/dL Magnesium (1.7-2.3) mg/dL Total Bilirubin (0.1-1.2) mg/dL AST (5-40) units/L ALT (7-56) units/L Alkaline Phosphatase (35-129) units/L Total Creatine Kinase (30-135) units/L Total Protein (6.3-8.2) g/dL Albumin (3.9-5) g/dL Albumin/Globulin Ratio % TSH 3.250 (0.270-4.200) mlU/mL Free T4 0.86 (0.76-1.46) ng/dL HCG, Quant < 2 (0-4) mIU/mL Urine Color (Yellow) Urine Turbidity (Clear) Specific Sparks (Man) (1.003-1.030) Ur Protein (Man) (Negative) mg/dL Ur Ketones (Man) (Negative) Ur Nitrite (Man) (Negative) Ur Reducing Substances Urine Bilirubin (Man) (Negative) Urine Ictotest Leukocyte Esterase (Man) (Negative) Urine WBC (Auto) (0.0-6.0) /HPF Urine RBC (Auto) (0.0-6.0) /HPF U Epithel Cells (Auto) (0-13.0) /HPF Urine Bacteria (Auto) (Negative) /HPF Urine RBC (Manual) (Negative) Urine Mucus /HPF 05/27/22 Range/Units 00:12 WBC (4.5-11.0) K/mm3 RBC (3.65-5.03) M/mm3 Hgb (10.1-14.3) gm/dl Hct (30.3-42.9) % MCV (79-97) fl MCH (28-32) pg MCHC (30-34) % RDW (13.2-15.2) % Plt Count (140-440) K/mm3 PT (12.2-14.9) Sec. INR (0.87-1.13) Sodium (137-145) mmol/L Potassium (3.6-5.0) mmol/L Chloride (98-107) mmol/L Carbon Dioxide (22-30) mmol/L Anion Gap mmol/L BUN (7-17) mg/dL Creatinine (0.6-1.2) mg/dL Estimated GFR ml/min BUN/Creatinine Ratio % Glucose (65-100) mg/dL Calcium (8.4-10.2) mg/dL Magnesium (1.7-2.3) mg/dL Total Bilirubin (0.1-1.2) mg/dL AST (5-40) units/L ALT (7-56) units/L Alkaline Phosphatase (35-129) units/L Total Creatine Kinase (30-135) units/L Total Protein (6.3-8.2) g/dL Albumin (3.9-5) g/dL Albumin/Globulin Ratio % TSH (0.270-4.200) mlU/mL Free T4 (0.76-1.46) ng/dL HCG, Quant (0-4) mIU/mL Urine Color Yellow (Yellow) Urine Turbidity Slightly cloudy (Clear) Specific Sparks (Man) 1.030 (1.003-1.030) Ur Protein (Man) 1+ (Negative) mg/dL Ur Ketones (Man) Negative (Negative) Ur Nitrite (Man) Negative (Negative) Ur Reducing Substances Not Reportable Urine Bilirubin (Man) Negative (Negative) Urine Ictotest Not Reportable Leukocyte Esterase (Man) Small (Negative) Urine WBC (Auto) 11.0 H (0.0-6.0) /HPF Urine RBC (Auto) 14.0 (0.0-6.0) /HPF U Epithel Cells (Auto) 14.0 H (0-13.0) /HPF Urine Bacteria (Auto) 1+ (Negative) /HPF Urine RBC (Manual) Negative (Negative) Urine Mucus 1+ /HPF - EKG Data -: EKG Interpreted by Me (Anterior septal Q waves) EKG shows normal: sinus rhythm, intervals (QTC 418), QRS complexes (QRS duration 70), ST-T waves (No STEMI) Rate: tachycardia - Radiology Data Radiology results: report reviewed CT ABDOMEN AND PELVIS WITHOUT CONTRAST INDICATION / CLINICAL INFORMATION: right suprapubic pain, inguinal pain. TECHNIQUE: Axial CT images were obtained through the abdomen and pelvis without IV contrast. All CT scans at this location are performed using CT dose reduction for ALARA by means of automated exposure control. COMPARISON: None available. FINDINGS: LOWER CHEST: No significant abnormality. LIVER: There is steatosis without other significant abnormalities. GALLBLADDER: Surgically absent. BILE DUCTS: No significant abnormality. PANCREAS: No significant abnormality. SPLEEN: No significant abnormality. ADRENALS: No significant abnormality. RIGHT KIDNEY/URETER: No significant abnormality. LEFT KIDNEY/URETER: No significant abnormality. STOMACH/SMALL BOWEL: No significant abnormality. COLON: No significant abnormality. APPENDIX: Mild soft tissue thickening is seen along the tip of the appendix with mild surrounding fat stranding. The majority of the appendix is air-filled and appears unr emarkable. No appendicolith is seen. PERITONEUM: No free fluid. No free air. No fluid collection. LYMPH NODES: No significant adenopathy. VASCULATURE: No significant abnormality. URINARY BLADDER: Collapsed without a distinct acute abnormality. REPRODUCTIVE ORGANS: No significant abnormality. ADDITIONAL FINDINGS: None. BONES: No significant abnormality IMPRESSION: 1. Abnormal appearance of the appendix as above could represent early acute appendicitis. Please correlate with the clinical findings. 2. No other acute findings to explain the patient's pain. - Medical Decision Making 41-year-old female presents to the hospital with 2 weeks of right inguinal pain, and recent headache. Headache improved shortly after receiving Benadryl and Reglan. Patient began to feel funny and have palpitations with heart rate in 140s after receiving this medication. She was treated with IV Valium and normal saline with improvement in symptoms. Clinically patient appears to have right inguinal pain/strain and she lacks associated symptoms suggestive of appendicitis. CT abdomen pelvis without IV contrast reveals possible inflammat ion of the tip of the appendix with recommendation to correlate clinically. I discussed the CT read with the radiologist who does not think that administration of contrast with change the current CT read. This was discussed with Dr. Lopez who advises to admit patient to the hospital for repeat examination and surgeon evaluation. UA results noted and given high number of epithelial cells I suspect contamination therefore antibiotics not ordered at this time. Critical Care Time: No Critical care attestation.: If time is entered above; I have spent that time in minutes in the direct care of this critically ill patient, excluding procedure time. ED Disposition Clinical Impression: Headache, Right inguinal pain, Abnormal CT of the abdomen, Obesity, History of idiopathic intracranial hypertension Disposition: ADMITTED INPATIENT Is pt being admited?: Yes Condition: Stable Time of Disposition: 03:14 (Dr Landeros/hospitalist)
--- NOTE | 2022-05-27 00:31 | Cat Scan Report ---
CT ABDOMEN AND PELVIS WITHOUT CONTRAST INDICATION / CLINICAL INFORMATION: right suprapubic pain, inguinal pain. TECHNIQUE: Axial CT images were obtained through the abdomen and pelvis without IV contrast. All CT scans at [facility] location are performed using CT dose reduction for ALARA by means of automated exposure control. COMPARISON: None available. FINDINGS: LOWER CHEST: No significant abnormality. LIVER: There is steatosis without other significant abnormalities. GALLBLADDER: Surgically absent. BILE DUCTS: No significant abnormality. PANCREAS: No significant abnormality. SPLEEN: No significant abnormality. ADRENALS: No significant abnormality. RIGHT KIDNEY/URETER: No significant abnormality. LEFT KIDNEY/URETER: No significant abnormality. STOMACH/SMALL BOWEL: No significant abnormality. COLON: No significant abnormality. APPENDIX: Mild soft tissue thickening is seen along the tip of the appendix with mild surrounding fat stranding. The majority of the appendix is air-filled and appears unremarkable. No appendicolith is seen. PERITONEUM: No free fluid. No free air. No fluid collection. LYMPH NODES: No significant adenopathy. VASCULATURE: No significant abnormality. URINARY BLADDER: Collapsed without a distinct acute abnormality. REPRODUCTIVE ORGANS: No significant abnormality. ADDITIONAL FINDINGS: None. BONES: No significant abnormality IMPRESSION: 1. Abnormal appearance of the appendix as above could represent early acute appendicitis. Please lori elate with the clinical findings. 2. No other acute findings to explain the patient's pain. Signer Name: Amish Polk MD Signed: 05/27/2022 12:26 AM Workstation Name: [id number]
[2022-05-27 00:53] LABS: Bacteria,Urine 1+ /HPF (Negative); Mucus,Urine 1+ /HPF
[2022-05-27 01:06] LABS: Color,Urine Yellow (Yellow)
[2022-05-27 03:23] VITALS: BP 158/93
[2022-05-27] MEDS ORDERED: ONDANSETRON 4 MG/2 ML INJ IV PRN (04:01)
[2022-05-27] MEDS ORDERED: ACETAMINOPHEN 325 MG TAB PO PRN (04:01)
[2022-05-27] MEDS ORDERED: MORPHINE 2 MG/1 ML INJ IV PRN (04:01)
--- NOTE | 2022-05-27 04:14 | History and Physical Report ---
History of Present Illness Date of examination: 05/27/22 Date of admission: 05/27/2022 Chief complaint: Abdominal Pain History of present illness: 41-year-old -[place] female with known history of anxiety, idiopathic intracranial hypertension, anxiety and chronic back pain presenting to the emergency room today with a complaint of headache and lower abdominal pain. Abdominal pain is said to be more in the right lower abdomen and has been ongoing for the past 2 weeks. He has had associated nausea but no no vomiting and no diarrhea. She also complains of urinary frequency but denies any dysuria or hematuria. Abdominal pain is more upon lying down. She denies any trauma to the abdomen and denies any fall. Patient denies any fever or chills, no chest pain or shortness of breath. Patient indicates that headache feels like pressure behind the eyes. She denies any blurry vision, she denies any dizziness. Work-up in the emergency room today, labs significant for mildly elevated AST of 41 and ALT of 58. Urinalysis reveals few WBCs and 1+ bacteria. CT of the abdomen and pelvis reveals no significant abnormality but there is a mild soft tissue thickening seen along the tip of the appendix with surrounding fat stranding. Findings were discussed with the on-call surgeon by the ER physician. Patient has been placed n.p.o. and will be evaluated in the a.m. Past History Past Medical History: hypertension, other (Chronic Back Pain/ IIH,depression/anxiety.) Past Surgical History: Other (tubal ligation) Social history: no significant social history Family history: no significant family history Medications and Allergies Allergies Allergy/AdvReac Type Severity Reaction Status Date / Time acetaminophen [From Percocet] AdvReac Itching Verified 05/26/22 16:20 oxycodone HCl [From Percocet] AdvReac Itching Verified 05/26/22 16:20 Home Medications Medication Instructions Recorded Confirmed Last Taken Type Azithromycin [Zithromax Z-TATIANA] 250 mg PO QDAY #6 tablet 01/15/17 Unknown Rx Benzonatate [Tessalon Perles] 100 mg PO Q8HR #14 capsule 01/15/17 Unknown Rx Cyclobenzaprine HCl [Flexeril 5 MG 5 mg PO Q8HR PRN #15 tab 01/15/17 Unknown Rx TAB] guaiFENesin [Mucinex] 600 mg PO Q6HR #20 tab.er.12h 01/15/17 Unknown Rx Ibuprofen [Motrin 800 MG tab] 800 mg PO Q8HR PRN #30 tablet 12/26/17 Unknown Rx methOCARBAMOL [Robaxin TAB] 500 mg PO BID #15 tab 12/26/17 Unknown Rx Amoxicillin/Potassium Clav 1 each PO BID 10 Days #20 tablet 09/19/18 Unknown Rx [Augmentin 875-125 Tablet] Cetirizine HCl [ZyrTEC] 10 mg PO DAILY #30 tab.rapdis 09/19/18 Unknown Rx Fluticasone [Flonase] 1 spray NS QDAY #1 bottle 09/19/18 Unknown Rx Ibuprofen [Ibuprofen 800] 800 mg PO TID PRN #30 tablet 09/19/18 Unknown Rx Polymyxin B Sulf/Trimethoprim 2 drops OP Q4H 10 Days #10 ml 09/19/18 Unknown Rx [Polytrim Eye Drops] dexAMETHasone [Decadron] 4 mg PO BID 2 Days #4 tablet 09/19/18 Unknown Rx Meclizine [Antivert] 25 mg PO TID PRN #30 tablet 10/02/19 Unknown Rx Naproxen 375 mg PO BID PRN #20 tablet 08/25/21 Unknown Rx Active Meds: Active Medications Acetaminophen (Acetaminophen 325 Mg Tab) 650 mg PO Q4H PRN PRN Reason: Pain MILD(1-3)/Fever >100.5/BARRAZA Sodium Chloride (Nacl 0.9% 1000 Ml) 1,000 mls @ 75 mls/hr IV DIRECT SHANNAN Morphine Sulfate (Morphine 2 Mg/1 Ml Inj) 2 mg IV Q4H PRN PRN Reason: Pain, Moderate (4-6) Ondansetron HCl (Ondansetron 4 Mg/2 Ml Inj) 4 mg IV Q8H PRN PRN Reason: Nausea And Vomiting Sodium Chloride (Sodium Chloride 0.9% 10 Ml Flush Syringe) 10 ml IV BID SHANNAN Sodium Chloride (Sodium Chloride 0.9% 10 Ml Flush Syringe) 10 ml IV PRN PRN PRN Reason: LINE FLUSH Review of Systems Constitutional: no fever, no chills Ears, nose, mouth and throat: no nasal congestion, no sore throat Cardiovascular: no chest pain, no palpitations Respiratory: no cough, no shortness of breath Gastrointestinal: abdominal pain, nausea, no vomiting, no diarrhea Genitourinary Female: no pelvic pain, no flank pain, no dysuria, no hematuria Musculoskeletal: no neck pain, no low back pain Integumentary: no rash, no pruritis Neurological: no headaches, no confusion Psychiatric: no anxiety, no depression Endocrine: no polyphagia, no polydipsia, no polyuria, no nocturia Exam - Constitutional Vitals: Temp Pulse Resp BP Pulse Ox 99 F 93 H 16 158/93 99 05/26/22 16:20 05/27/22 03:15 05/27/22 03:15 05/27/22 03:15 05/27/22 03:15 General appearance: Present: no acute distress, well-nourished, obese - EENT Eyes: Present: PERRL, EOM intact. Absent: scleral icterus ENT: hearing intact, clear oral mucosa, dentition normal - Neck Neck: Present: supple, normal ROM - Respiratory Respiratory effort: normal Respiratory: bilateral: CTA - Cardiovascular Rhythm: regular Heart Sounds: Present: S1 & S2. Absent: gallop, systolic murmur, diastolic murmur, rub, click - Extremities Extremities: no ischemia, pulses intact, pulses symmetrical, No edema, normal temperature, normal color, Full ROM Peripheral Pulses: within normal limits - Abdominal General gastrointestinal: Present: soft, tender (Mild tenderness in right lower quadrant), non-distended, normal bowel sounds. Absent: mass - Musculoskeletal Musculoskeletal: strength equal bilaterally - Psychiatric Psychiatric: appropriate mood/affect, intact judgment & insight, memory intact, cooperative - Neurologic Neurologic: CNII-XII intact, no focal deficits, moves all extremities Results - Labs CBC & Chem 7: 05/26/22 22:31 05/26/22 22:31 Labs: Abnormal lab results 05/26/22 05/27/22 Range/Units 22:31 00:12 Sodium 136 L (137-145) mmol/L Potassium 3.5 L (3.6-5.0) mmol/L Carbon Dioxide 20 L (22-30) mmol/L BUN 6 L (7-17) mg/dL Glucose 144 H (65-100) mg/dL AST 41 H (5-40) units/L ALT 58 H (7-56) units/L Total Creatine Kinase 160 H (30-135) units/L Urine WBC (Auto) 11.0 H (0.0-6.0) /HPF U Epithel Cells (Auto) 14.0 H (0-13.0) /HPF Assessment and Plan Assessment: 1. Abdominal pain 2. History of idiopathic intracranial hypertension 3. UTI Plan: 1. Patient admitted n.p.o. and placed on IV fluids and analgesic medication. 2. Placed on empiric IV antibiotics for mild UTI. 3. We will await surgical evaluation and recommendation. DVT prophylaxis: Sequential Compression Device Code Status: Full Code
[2022-05-27] MEDS ORDERED: SODIUM CHLORIDE 0.9% 1000 ML 1,000 ML IV SCH (04:15)
[2022-05-27] MEDS: MORPHINE 4 MG/1 ML INJ IV PRN ×2 (05:10→10:31)
[2022-05-27] MEDS ORDERED: cefTRIAXone/NS 1 GM/50 ML 1 GM/50 ML BAG IV SCH (06:00)
--- NOTE | 2022-05-27 07:48 | Event Note ---
Date: 05/27/22 Patient is a 41-year-old -[place] female with known history of anxiety, idiopathic intracranial hypertension, morbidly obese anxiety and chronic back pain presenting to the emergency room today with a complaint of headache and lower abdominal pain. Diagnosed with possible appendicitis. Work-up revealed Work-up in the emergency room today, labs significant for mildly elevated AST of 41 and ALT of 58. Urinalysis reveals few WBCs and 1+ bacteria. CT of the abdomen and pelvis reveals no significant abnormality but there is a mild soft tissue thickening seen along the tip of the appendix with surrounding fat stranding. Findings were discussed with the on-call surgeon by the ER physician. Patient has been placed n.p.o. and will be evaluated in the a.m. She denies any respiratory symptoms. Abdominal pain likely secondary to appendicitis Pyuria doubt acute cystitis Morbid obesity plan Await surgical evaluation Check lipase level Repeat CMP in a.m. Weight loss counseling provided to the patient for 15 minutes. Recommend outpatient sleep study evaluation. Additional 25 minutes exam performed.
--- NOTE | 2022-05-27 09:27 | Consultation ---
History of Present Illness Consult date: 05/27/22 Reason for consult: abdominal pain Chief complaint: Headaches and abdominal pain - History of present illness History of present illness: 41-year-old female with a past medical history of obesity, idiopathic intracranial hypertension, anxiety, tubal ligation, chronic back pain presents to the hospital with complaints of headache and right inguinal pain. Patient states she has had a right inguinal pain and right lower abdomen pain for the past 2 weeks. She complains of urinary frequency without dysuria. Pain is moderate in intensity and is worse when lying supine, with palpation, and with ambulation. The pain is located in the inguinal area and radiates down her leg and into her back. She denies n/v or anorexia. Patient also states she is has a headache described as a pressure behind her eyes. She does feel as though this is similar to her idiopathic intracranial hypertension headaches. She had nausea on admission without vomiting, focal weakness, or focal numbness, or neck pain. She denies that this is the worst headache of her life. WBC ct is normal, CT of the abdo shows the appendix to be low lower than usual in the pelvis near the midline. It is not acutely inflammed. It is airfilled. There are no signs of inguinal or femoral hernias. Past History Past Medical History: hypertension, other (Chronic Back Pain/ IIH,depression/anx iety.) Past Surgical History: Other (tubal ligation) Social history: no significant social history Family history: no significant family history Medications and Allergies Allergies Allergy/AdvReac Type Severity Reaction Status Date / Time acetaminophen [From Percocet] AdvReac Itching Verified 05/26/22 16:20 oxycodone HCl [From Percocet] AdvReac Itching Verified 05/26/22 16:20 Home Medications Medication Instructions Recorded Confirmed Last Taken Type Azithromycin [Zithromax Z-TATIANA] 250 mg PO QDAY #6 tablet 01/15/17 Unknown Rx Benzonatate [Tessalon Perles] 100 mg PO Q8HR #14 capsule 01/15/17 Unknown Rx Cyclobenzaprine HCl [Flexeril 5 MG 5 mg PO Q8HR PRN #15 tab 01/15/17 Unknown Rx TAB] guaiFENesin [Mucinex] 600 mg PO Q6HR #20 tab.er.12h 01/15/17 Unknown Rx Ibuprofen [Motrin 800 MG tab] 800 mg PO Q8HR PRN #30 tablet 12/26/17 Unknown Rx methOCARBAMOL [Robaxin TAB] 500 mg PO BID #15 tab 12/26/17 Unknown Rx Amoxicillin/Potassium Clav 1 each PO BID 10 Days #20 tablet 09/19/18 Unknown Rx [Augmentin 875125 Tablet] Cetirizine HCl [ZyrTEC] 10 mg PO DAILY #30 tab.rapdis 09/19/18 Unknown Rx Fluticasone [Flonase] 1 spray NS QDAY #1 bottle 09/19/18 Unknown Rx Ibuprofen [Ibuprofen 800] 800 mg PO TID PRN #30 tablet 09/19/18 Unknown Rx Polymyxin B Sulf/Trimethoprim 2 drops OP Q4H 10 Days #10 ml 09/19/18 Unknown Rx [Polytrim Eye Drops] dexAMETHasone [Decadron] 4 mg PO BID 2 Days #4 tablet 09/19/18 Unknown Rx Meclizine [Antivert] 25 mg PO TID PRN #30 tablet 10/02/19 Unknown Rx Naproxen 375 mg PO BID PRN #20 tablet 08/25/21 Unknown Rx Active Meds: Active Medications Acetaminophen (Acetaminophen 325 Mg Tab) 650 mg PO Q4H PRN PRN Reason: Pain MILD(1-3)/Fever >100.5/BARRAZA Last Admin: 05/27/22 08:34 Dose: 650 mg Sodium Chloride (Nacl 0.9% 1000 Ml) 1,000 mls @ 75 mls/hr IV DIRECT SHANNAN Last Admin: 05/27/22 08:55 Dose: 75 mls/hr Ceftriaxone Sodium (Rocephin/Ns 1 Gm/50 Ml) 1 gm in 50 mls @ 100 mls/hr IV Q24H SHANNAN; Protocol Last Infusion: 05/27/22 07:54 Dose: Infused Morphine Sulfate (Morphine 2 Mg/1 Ml Inj) 2 mg IV Q4H PRN PRN Reason: Pain, Moderate (4-6) Morphine Sulfate (Morphine 4 Mg/1 Ml Inj) 4 mg IV Q4H PRN PRN Reason: Pain , Severe (7-10) Last Admin: 05/27/22 05:10 Dose: 4 mg Ondansetron HCl (Ondansetron 4 Mg/2 Ml Inj) 4 mg IV Q8H PRN PRN Reason: Nausea And Vomiting Sodium Chloride (Sodium Chloride 0.9% 10 Ml Flush Syringe) 10 ml IV BID SHANNAN Last Admin: 05/27/22 09:00 Dose: 10 ml Sodium Chloride (Sodium Chloride 0.9% 10 Ml Flush Syringe) 10 ml IV PRN PRN PRN Reason: LINE FLUSH Exam Vital Signs Temp Pulse Resp BP Pulse Ox 99 F 95 H 20 158/103 100 05/26/22 16:20 05/26/22 16:20 05/26/22 16:20 05/26/22 16:20 05/26/22 16:20 - General physical appearance Positive: well developed, no distress - Eyes Positive: PERRL - Neck Positive: no masses, no bruits, trachea midline - Respiratory Positive: normal expansion - Cardiovascular Rhythm: regular - Extremities Extremities: no ischemia, No edema - Abdomen Abdomen: Present: soft, bowel sounds normal. Absent: tender, distended, masses, rebound, guarding Hernia: none - Neurologic Neurologic: alert and oriented to time, place and person, motor strength and sensation are grossly intact, CN II-XII intact Results - Labs 05/26/22 22:31 05/26/22 22:31 Abnormal lab results 05/26/22 05/27/22 Range/Units 22:31 00:12 Sodium 136 L (137-145) mmol/L Potassium 3.5 L (3.6-5.0) mmol/L Carbon Dioxide 20 L (22-30) mmol/L BUN 6 L (7-17) mg/dL Glucose 144 H (65-100) mg/dL AST 41 H (5-40) units/L ALT 58 H (7-56) units/L Total Creatine Kinase 160 H (30-135) units/L Urine WBC (Auto) 11.0 H (0.0-6.0) /HPF U Epithel Cells (Auto) 14.0 H (0-13.0) /HPF Diabetes panel 05/26/22 Range/Units 22:31 Sodium 136 L (137-145) mmol/L Potassium 3.5 L (3.6-5.0) mmol/L Chloride 101.4 (98-107) mmol/L Carbon Dioxide 20 L (22-30) mmol/L BUN 6 L (7-17) mg/dL Creatinine 0.7 (0.6-1.2) mg/dL Glucose 144 H (65-100) mg/dL Calcium 9.0 (8.4-10.2) mg/dL AST 41 H (5-40) units/L ALT 58 H (7-56) units/L Alkaline Phosphatase 71 (35-129) units/L Total Protein 7.7 (6.3-8.2) g/dL Albumin 4.3 (3.9-5) g/dL Thyroid panel 05/26/22 Range/Units 22:31 TSH 3.250 (0.270-4.200) mlU/mL Calcium panel 05/26/22 Range/Units 22:31 Calcium 9.0 (8.4-10.2) mg/dL Albumin 4.3 (3.9-5) g/dL Pituitary panel 05/26/22 05/26/22 Range/Units 22:31 22:31 Sodium 136 L (137-145) mmol/L Potassium 3.5 L (3.6-5.0) mmol/L Chloride 101.4 (98-107) mmol/L Carbon Dioxide 20 L (22-30) mmol/L BUN 6 L (7-17) mg/dL Creatinine 0.7 (0.6-1.2) mg/dL Glucose 144 H (65-100) mg/dL Calcium 9.0 (8.4-10.2) mg/dL TSH 3.250 (0.270-4.200) mlU/mL Adrenal panel 05/26/22 Range/Units 22:31 Sodium 136 L (137-145) mmol/L Potassium 3.5 L (3.6-5.0) mmol/L Chloride 101.4 (98-107) mmol/L Carbon Dioxide 20 L (22-30) mmol/L BUN 6 L (7-17) mg/dL Creatinine 0.7 (0.6-1.2) mg/dL Glucose 144 H (65-100) mg/dL Calcium 9.0 (8.4-10.2) mg/dL Total Bilirubin 0.50 (0.1-1.2) mg/dL AST 41 H (5-40) units/L ALT 58 H (7-56) units/L Alkaline Phosphatase 71 (35-129) units/L Total Protein 7.7 (6.3-8.2) g/dL Albumin 4.3 (3.9-5) g/dL Assessment and Plan Pt with right sided pain not located in the abdomen, Possibly nerogenic. Okay to advance diet and if tolerated dc pt. She has a neurologist at [place] and should fu there. Rx for gabapentin can also be tried.
--- NOTE | 2022-05-27 09:43 | Discharge Summary ---
Providers - Providers Date of Admission: 05/27/22 04:02 Attending physician: UTE STILL MD 05/27/22 03:12 Consult to Physician [CONS] Urgent Comment: Dr. Maldonado spoke with Dr. Lopez @ 0151 Consulting Provider: ARTURO LOPEZ Physician Instructions: Reason For Exam: possible inflamation of appendix Primary care physician: SATURNINO SALOMON Hospitalization Reason for admission: Right inguinal pain Condition: Stable Hospital course: Patient is a 41-year-old -[place] female with known history of anxiety, idiopathic intracranial hypertension, morbidly obese anxiety and chronic back pain presenting to the emergency room today with a complaint of headache and lower abdominal pain. Diagnosed with possible appendicitis. Work-up revealed Work-up in the emergency room today, labs significant for mildly elevated AST of 41 and ALT of 58. Urinalysis reveals few WBCs and 1+ bacteria. CT of the abdomen and pelvis reveals no significant abnormality but there is a mild soft tissue thickening seen along the tip of the appendix with surrounding fat stranding. Findings were discussed with the on-call surgeon by the ER physician. Patient has been placed n.p.o. and will be evaluated in the a.m. She denies any respiratory symptoms. She states that she had a headache and Ricky some shortness of breath which quickly resolved. She was evaluated by the surgeon who noted "WBC ct is normal, CT of the abdo shows the appendix to be low lower than usual in the pelvis near the midline. It is not acutely inflammed. It is airfilled. There are no signs of inguinal or femoral hernias." I did discuss with the surgeon who believes that this is likely new organic. Trial of gabapentin and Flexeril. I did give counseling to the patient about his medications and side effects. She will also follow-up with her outpatient neurologist at [place] and her primary care physician. Her headache at this point is resolved. While her urinalysis shows some white count and there was also epithelial cells nevertheless we will treat empirically. She does report some symptoms around the genital area. I provided extensive counseling on need to lose weight 25 minutes counseling and discussion and with resources provided. Patient verbalized understanding Abdominal pain right lower quadrant around the inguinal area likely neuropathic pain Pyuria possible acute cystitis Morbid obesity BMI 45.2 idiopathic intracranial hypertension now resolved Disposition: HOME / SELF CARE / HOMELESS Final Discharge Diagnosis (Prints w/discharge instructions): Abdominal pain right lower quadrant around the inguinal area likely neuropathic pain. Pyuria possible acute cystitis. Morbid obesity BMI 45.2. idiopathic intracranial hypertension now resolved Core Measure Documentation - Palliative Care Palliative Care/ Comfort Measures: Not Applicable - Core Measures Any of the following diagnoses?: none Exam - Physical Exam Narrative exam: VITAL SIGNS: Reviewed. GENERAL: The patient appears normally developed, morbidly obese vital signs as documented. HEAD: No signs of head trauma. EYES: Pupils are equal. Extraocular motions intact. EARS: Hearing grossly intact. MOUTH: Oropharynx is normal. NECK: No adenopathy, no JVD. CHEST: Chest with clear breath sounds bilaterally. No wheezes, rales, or rh onchi. CARDIAC: Regular rate and rhythm. S1 and S2, without murmurs, gallops, or rubs. VASCULAR: No Edema. Peripheral pulses normal and equal in all extremities. ABDOMEN: Large abdominal girth soft, non tender and non distended. No rebound or guarding, and no masses palpated. Bowel Sounds normal. Mild tenderness around the inguinal area. MUSCULOSKELETAL: Good range of motion of all major joints. Extremities without clubbing, cyanosis or edema. NEUROLOGIC EXAM: Alert and oriented x 3 No focal sensory or strength deficits. Speech normal. Follows commands. PSYCHIATRIC: Mood normal. SKIN: detail exam as documented in skin assessment - Constitutional Vitals: Temp Pulse Resp BP Pulse Ox 99 F 89 22 158/93 98 05/26/22 16:20 05/27/22 04:15 05/27/22 04:15 05/27/22 04:15 05/27/22 04:15 Plan Activity: advance as tolerated, fall precautions Diet: low fat Special Instructions: record daily weights, record daily BP diary Care Plan Goals: Please follow with your primary care doctor in 1 to 7 days. Follow with your neurologist at [facility]. If symptoms are not resolving with medications follow-up with the surgeon as recommended. Follow up with: SATURNINO SALOMON MD [Primary Care Provider] - 7 Days ARTURO LOPEZ MD [Staff Physician] - 7 Days Prescriptions: Cyclobenzaprine HCl [Flexeril 5 MG TAB] 5 mg PO Q8HR PRN #15 tab PRN Reason: Pain methOCARBAMOL [Robaxin TAB] 500 mg PO BID #15 tab
--- NOTE | 2022-05-27 16:59 | Electrocardiograph Report ---
[facility] Test Date: 2022-05-26 Test Time: 22:25:07 Pat Name: KIA TAYLOR Department: Room: A367 1 Gender: F Audit Senior Associate: NABIL : 1980 Requested By: PRITI RAMOS Order Number: [id number] Reading MD: Jesus Rodrigez Measurements Intervals [place] Rate: 142 P: 79 MA: 151 QRS: 31 QRSD: 70 T: -29 QT: 271 QTc: 418 Interpretive Statements Sinus or atrial tachycardia Possible anteroseptal infarct, old No previous ECG available for comparison Electronically Signed On 05-27-2022 16:59:00 EDT by Jesus Rodrigez
== END 2022-05-27 13:12 | disposition home or self-care (01) | DRG 74 ==
LOC: ED 15:39 → 3A 05-27 04:02
PROVIDERS: ADMIT Internal Medicine Geriatric Medicine; ATTEND Internal Medicine
DX: M79.2 Neuralgia and neuritis, unspecified (principal); G93.2 Benign intracranial hypertension; F41.9 Anxiety disorder, unspecified; G89.29 Other chronic pain; M54.9 Dorsalgia, unspecified; F32.A Depression, unspecified; I10 Essential (primary) hypertension; N30.00 Acute cystitis without hematuria; Z68.42 Body mass index [BMI] 45.0-49.9, adult; E66.01 Morbid (severe) obesity due to excess calories; Z86.69 Personal history of other diseases of the nervous system and sense organs; Z98.51 Tubal ligation status; Z88.8 Allergy status to other drugs, medicaments and biological substances
CPT/HCPCS: 36415; 74176; 80053; 81001; 82550; 83690; 83735; 84439; 84443; 84702; 85027; 85610; 87086; 93005; G0378; J0696; J1200; J2270; J2765; J3360; J7030